=== PATIENT | male | born 1995 | race Caucasian/White ===

== ENCOUNTER → 2024-01-09 | Outpatient (CLI) | payer BC ==
--- NOTE | 2024-01-10 07:29 | XR ---
EXAMINATION TYPE: XR knee complete LT DATE OF EXAM: 01/09/2024 CLINICAL HISTORY: pain TECHNIQUE: Three views of the left knee are obtained. COMPARISON: None. FINDINGS: There is no acute fracture/dislocation. The tri-compartment joint spaces appear within no rmal limits. The overlying soft tissue appears unremarkable. IMPRESSION: There is no acute fracture or dislocation ICD 10 NO FRACTURE, INITIAL EVALUATION
== END | disposition home or self-care (01) ==
LOC: RADXRYALE 15:08
PROVIDERS: ATTEND Physician Assistant Medical
DX: M25.562 Pain in left knee (principal); V86.56XA Driver of dirt bike or motor/cross bike injured in nontraffic accident, initial encounter